=== PATIENT | female | born 1985 | race African-American/Black ===

== ENCOUNTER 2022-02-12 20:56 | Emergency (ER) | payer BC, OTHER ==
[2022-02-12 21:00] VITALS: BP 126/71; PULSE 90; TEMP 98.5; BMI 33.6
[2022-02-12 21:38] LABS: PH,URINE >= 9.0 (5.0-8.0); URINE APPEARANCE CLEAR; URINE BILIRUBIN NEGATIVE (NEGATIVE); URINE COLOR YELLOW; URINE GLUCOSE (UA) NEGATIVE (NEGATIVE); URINE KETONE NEGATIVE (NEGATIVE); URINE LEUK ESTERASE NEGATIVE (NEGATIVE); URINE NITRITE NEGATIVE (NEGATIVE); URINE PROTEIN NEGATIVE (NEGATIVE); URINE UROBILINOGEN 0.2 mg/dL (0.2-1.0)
[2022-02-12 21:41] LABS: HCG,QUALITATIVE URINE Negative
[2022-02-12] MEDS ORDERED: FAMOTIDINE 10 MG TABLET PO ONE (21:43)
[2022-02-12] MEDS ORDERED: MAG HYDROX/AL HYDROX/SIMETH 30 ML UNIT-DOSE CUP PO ONE (21:43)
[2022-02-12] MEDS ORDERED: ACETAMINOPHEN 325 MG TABLET (FP) PO ONE (21:44)
[2022-02-12] MEDS ORDERED: ACETAMINOPHEN 325 MG TABLET (FP) ONE (21:59)
[2022-02-12] MEDS ORDERED: FAMOTIDINE 10 MG TABLET ONE (21:59)
[2022-02-12] MEDS ORDERED: MAG HYDROX/AL HYDROX/SIMETH 30 ML UNIT-DOSE CUP ONE (22:00)
== END 2022-02-12 23:53 | disposition home or self-care (01) ==
LOC: JER 20:56
DX: R10.30 Lower abdominal pain, unspecified (principal); R19.7 Diarrhea, unspecified; R11.0 Nausea
CPT/HCPCS: 0241U-QW; 81003; 84703; 87086; 99283-25